=== PATIENT | male | born 1970 | race American Indian/Alaskan Native ===

== ENCOUNTER 2017-05-14 18:44 | Emergency (ER) | payer SELFPAY | END 2017-05-14 19:08 | disposition left against medical advice (07) | LOC: ED 18:44 | DX: R51 Headache (principal); Z53.21 Procedure and treatment not carried out due to patient leaving prior to being seen by health care provider ==

== ENCOUNTER 2019-12-22 21:00 | Emergency (ER) | payer OTHER ==
--- NOTE | 2019-12-22 21:21 | Consultation ---
History of Present Illness History of present illness: [facility] Date of Service: 12/22/2019 21:02:33 Impression: Rule Out Acute Ischemic Stroke Comments/Sign-Out: 49 YO M with h/o stroke on pradaxa, last dose this morning, presented with slurred speech. Recurrence of old stroke symptoms vs new stroke. Metrics: Last Known Well: 12/22/2019 18:00:00 [facility] Notification Time: 12/22/2019 21:02:22 Arrival Time: 12/22/2019 21:00:00 Stamp Time: 12/22/2019 21:02:33 Time First Login Attempt: 12/22/2019 21:07:07 Video Start Time: 12/22/2019 21:07:07 Symptoms: slurred speech NIHSS Start Assessment Time: 12/22/2019 21:11:00 Patient is not a candidate for tPA. Patient was not deemed candidate for tPA thrombolytics because of Use of NOAs within 48 hours. Video End Time: 12/22/2019 21:18:02 CT head showed no acute hemorrhage or acute core infarct. Clinical Presentation is not Suggestive of Large Vessel Occlusive Disease ED Physician notified of diagnostic impression and management plan on 12/22/2019 21:18:37 Our recommendations are outlined below. Recommendations: Activate Stroke Protocol Admission/Order Set Stroke/Telemetry Floor Neuro Checks Bedside Swallow Eval DVT Prophylaxis IV Fluids, Normal Saline Head of Bed 30 Degrees Euglycemia and Avoid Hyperthermia (PRN Acetaminophen) Infectious/metabolic workup. Routine Consultation with Inhouse Neurology for Follow up Care Sign Out: Discussed with Emergency Department Provider History of Present Illness: Patient is a 49 year old Male. Patient was brought by EMS for symptoms of slurred speech 49 YO M with h/o stroke on pradaxa, last dose this morning, presented with slurred speech. He states that he feels like his speech is normal but when he came home his told him that his speech is slurred. 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 Denies any focal weakness or numbness. Examination: 1A: Level of Consciousness - Alert; keenly responsive + 0 1B: Ask Month and Age - Both Questions Right + 0 1C: Blink Eyes & Squeeze Hands - Performs Both Tasks + 0 2: Test Horizontal Extraocular Movements - Normal + 0 3: Test Visual Briscoe - No Visual Loss + 0 4: Test Facial Palsy (Use Grimace if Obtunded) - Minor paralysis (flat nasolabial fold, smile asymmetry) + 1 5A: Test Left Arm Motor Drift - No Drift for 10 Seconds + 0 5B: Test Right Arm Motor Drift - No Drift for 10 Seconds + 0 6A: Test Left Leg Motor Drift - No Drift for 5 Seconds + 0 6B: Test Right Leg Motor Drift - No Drift for 5 Seconds + 0 7: Test Limb Ataxia (FNF/Heel-Batista) - No Ataxia + 0 8: Test Sensation - Normal; No sensory loss + 0 9: Test Language/Aphasia - Normal; No aphasia + 0 10: Test Dysarthria - Mild-Moderate Dysarthria: Slurring but can be understood + 1 11: Test Extinction/Inattention - No abnormality + 0 NIHSS Score: 2 Patient/Family was informed the Neurology Consult would happen via TeleHealth consult by way of interactive audio and video telecommunications and consented to receiving care in this manner. Due to the immediate potential for life-threatening deterioration due to underlying acute neurologic illness, I spent 35 minutes providing critical care. This time includes time for face to face visit via telemedicine, review of medical records, imaging studies and discussion of findings with providers, the patient and/or family. Dr Kerri Reyes [facility] Case [id number] Medications and Allergies Allergies Allergy/AdvReac Type Severity Reaction Status Date / Time No Known Allergies Allergy Verified 05/10/13 23:44 Home Medications Medication Instructions Recorded Confirmed Last Taken Type Acetaminophen/Codeine [Tylenol #3] 1 tab PO Q6H PRN #15 tab 05/11/13 Unknown Rx Naproxen Sodium (Nf) [Anaprox DS] 550 mg PO BID PRN #10 tablet 05/11/13 Unknown Rx methOCARBAMOL [Robaxin] 750 mg PO Q8H PRN #15 tablet 05/11/13 Unknown Rx Cyclobenzaprine [Flexeril 10mg] 10 mg PO Q8H PRN #21 tablet 03/04/[address] [Brionna Montgomery] 75 mg PO Q12H #30 tablet 03/04/14 Unknown Rx HYDROcodone/APAP 10-325 [[place] 1 each PO Q6HR PRN #25 tablet 03/04/14 Unknown Rx 10-325 mg TAB]
[2019-12-22 21:28] LABS: Basophils % (Auto) 0.4 % (0.0-1.8); Eosinophils # (Auto) 0.1 K/mm3 (0.0-0.4); Eosinophils % (Auto) 1.5 % (0.0-4.3); Hematocrit 34.4 % (35.5-45.6); Hemoglobin 11.2 gm/dl (11.8-15.2); Lymphocytes # (Auto) 2.4 K/mm3 (1.2-5.4); Lymphocytes % (Auto) 32.9 % (13.4-35.0); Mean Corpuscular HGB Conc 33 % (32-34); Monocytes # (Auto) 0.6 K/mm3 (0.0-0.8); Monocytes % (Auto) 7.7 % (0.0-7.3); Platelet Count 208 K/mm3 (140-440); Red Blood Count 5.25 M/mm3 (3.65-5.03); Red Cell Distribution Width 17.8 % (13.2-15.2)
--- NOTE | 2019-12-22 21:29 | Cat Scan Report ---
CT head without contrast INDICATION : Stroke symptoms. Code stroke TECHNIQUE: Axial imaging performed from the skull apex through the skull base without the use of con trast. All CT scans at this location are performed using CT dose reduction for ALARA by means of aut omated exposure control. COMPARISON: None FINDINGS: Parenchyma: No acute intracranial hemorrhage or parenchymal abnormality. Bilateral basal ganglia dave cifications are present. Ventricles: Ventricles are normal in size and appear symmetric. Soft tissues: Soft tissues including the orbits appear normal. Bones: No acute osseous abnormality. Sinuses: Sinuses and mastoid air cells are clear. IMPRESSION: No acute abnormality. CODE STROKE: Time of Communication (SIDE STITCHING MACHINE OPERATOR/CDT): 8:24 pm Licensed Practitioner Receiving Report: Dr. Albert Signer Name: Blayne Holcomb MD Signed: 12/22/2019 9:25 PM Workstation Name: [id number]
[2019-12-22 21:32] LABS: Mean Corpuscular Volume 66 fl (84-94)
[2019-12-22 21:50] LABS: INR 1.04 (0.87-1.13)
[2019-12-22 21:51] LABS: Thrombin Time 33.3 Sec. (15.1-19.6)
[2019-12-22 21:53] LABS: Creatine Kinase MB 8.5 ng/mL (0.0-4.0)
[2019-12-22 21:54] LABS: Alanine Aminotransferase 14 units/L (7-56); Albumin 3.6 g/dL (3.9-5); BUN/Creatinine Ratio 15; Blood Urea Nitrogen 12 mg/dL (9-20); Hemolysis Index 4
[2019-12-22 21:55] VITALS: BP 101/65
--- NOTE | 2019-12-22 22:07 | XRay Report ---
CHEST 1 VIEW INDICATION: weakness. COMPARISON: None FINDINGS: SUPPORT DEVICES: None. HEART: Normal heart size with sternotomy change and stent in the proximal descending thoracic aorta. LUNGS/PLEURA: No acute air space or interstitial disease. ADDITIONAL FINDINGS: None. IMPRESSION: 1. No acute findings. Signer Name: Blayne Holcomb MD Signed: 12/22/2019 10:03 PM Workstation Name: [id number]
--- NOTE | 2019-12-22 22:18 | Emergency Department Report ---
ED General Adult HPI - General Chief complaint: Neuro Symptoms/Deficit Stated complaint: STROKE Time Seen by Provider: 12/22/19 21:04 Source: patient, EMS Mode of arrival: Stretcher Limitations: No Limitations - History of Present Illness Initial comments: Patient presents to the emergency department via EMS and aphasia. The symptoms started an hour prior to the patient's arrival to the ED. Per EMS they state the patient's noticed that his left side became weak and he cannot speak. Per EMS arrival the patient was able to move his left side and was not able to communicate. By the time they arrived to the emergency department the patient is not able to move all 4 extremities but has slurred speech. Patient has a history of a CVA and aortic arch dissection. The patient is on Pradaxa. -: Sudden Severity scale (0 -10): 0 Consistency: now resolved Improves with: none Worsens with: none Associated Symptoms: denies other symptoms Treatments Prior to Arrival: none - Related Data Previous Rx's Medication Instructions Recorded Last Taken Type Acetaminophen/Codeine [Tylenol #3] 1 tab PO Q6H PRN #15 tab 05/11/13 Unknown Rx Naproxen Sodium (Nf) [Anaprox DS] 550 mg PO BID PRN #10 tablet 05/11/13 Unknown Rx methOCARBAMOL [Robaxin] 750 mg PO Q8H PRN #15 tablet 05/11/13 Unknown Rx Cyclobenzaprine [Flexeril 10mg] 10 mg PO Q8H PRN #21 tablet 03/04/[address] [Voltaren Dr] 75 mg PO Q12H #30 tablet 03/04/14 Unknown Rx HYDROcodone/APAP 10-325 [[place] 1 each PO Q6HR PRN #25 tablet 03/04/14 Unknown Rx 10-325 mg TAB] Allergies Allergy/AdvReac Type Severity Reaction Status Date / Time No Known Allergies Allergy Verified 05/10/13 23:44 ED Review of Systems ROS: Stated complaint: STROKE Other details as noted in HPI Comment: Unobtainable due to pts medical conditions ED Past Medical Hx - Past Medical History Previous Medical History?: Yes Hx CVA: Yes (Right-sided weakness after) Hx Deep Vein Thrombosis: Yes (Neck) Hx GERD: Yes Hx Kidney Stones: Yes - Surgical History Past Surgical History?: Yes Hx Open Heart Surgery: Yes (aortic tear) - Social History Smoking Status: Never Smoker Substance Use Type: Alcohol - Medications Home Medications: Home Medications Medication Instructions Recorded Confirmed Last Taken Type Acetaminophen/Codeine [Tylenol #3] 1 tab PO Q6H PRN #15 tab 05/11/13 Unknown Rx Naproxen Sodium (Nf) [Anaprox DS] 550 mg PO BID PRN #10 tablet 05/11/13 Unknown Rx methOCARBAMOL [Robaxin] 750 mg PO Q8H PRN #15 tablet 05/11/13 Unknown Rx Cyclobenzaprine [Flexeril 10mg] 10 mg PO Q8H PRN #21 tablet 03/04/[address] [Voltaren Dr] 75 mg PO Q12H #30 tablet 03/04/14 Unknown Rx HYDROcodone/APAP 10-325 [[place] 1 each PO Q6HR PRN #25 tablet 03/04/14 Unknown Rx 10-325 mg TAB] ED Physical Exam - General Limitations: No Limitations General appearance: alert, in no apparent distress - Head Head exam: Present: atraumatic, normocephalic - Eye Eye exam: Present: normal appearance - ENT ENT exam: Present: mucous membranes moist - Neck Neck exam: Present: normal inspection - Respiratory Respiratory exam: Present: normal lung sounds bilaterally. Absent: respiratory distress - Cardiovascular Cardiovascular Exam: Present: regular rate, normal rhythm. Absent: systolic murmur, diastolic murmur, rubs, gallop - GI/Abdominal GI/Abdominal exam: Present: soft, normal bowel sounds. Absent: distended, tenderness - Rectal Rectal exam: Present: deferred - Extremities Exam Extremities exam: Present: normal inspection - Back Exam Back exam: Present: normal inspection - Neurological Exam Neurological exam: Present: alert, oriented X3, CN II-XII intact, other (Right- sided facial droop; slurred speech). Absent: motor sensory deficit - Psychiatric Psychiatric exam: Present: normal affect, normal mood - Skin Skin exam: Present: warm, dry, intact, normal color. Absent: rash ED Course Vital Signs 12/22/19 12/22/19 12/22/19 21:24 21:25 21:30 Temperature 98.6 F Pulse Rate 71 71 Respiratory 16 19 Rate Blood Pressure 101/65 Blood Pressure 99/67 [Left] O2 Sat by Pulse 97 96 97 Oximetry ED Medical Decision Making - Lab Data Result diagrams: 12/22/19 21:22 12/22/19 21:22 Lab Results 12/22/19 12/22/19 12/22/19 Range/Units 21:22 21:22 21:22 WBC 7.2 (4.5-11.0) K/mm3 RBC 5.25 H (3.65-5.03) M/mm3 Hgb 11.2 L (11.8-15.2) gm/dl Hct 34.4 L (35.5-45.6) % MCV 66 L (84-94) fl MCH 21 L (28-32) pg MCHC 33 (32-34) % RDW 17.8 H (13.2-15.2) % Plt Count 208 (140-440) K/mm3 Lymph % (Auto) 32.9 (13.4-35.0) % [place]yer % (Auto) 7.7 H (0.0-7.3) % Eos % (Auto) 1.5 (0.0-4.3) % Baso % (Auto) 0.4 (0.0-1.8) % Lymph # 2.4 (1.2-5.4) K/mm3 Dyer # 0.6 (0.0-0.8) K/mm3 Eos # 0.1 (0.0-0.4) K/mm3 Baso # 0.0 (0.0-0.1) K/mm3 Seg Neutrophils % 57.5 (40.0-70.0) % Seg Neutrophils # 4.2 (1.8-7.7) K/mm3 PT 13.8 (12.2-14.9) Sec. INR 1.04 (0.87-1.13) APTT 34.0 (24.2-36.6) Sec. Thrombin Time 33.3 H (15.1-19.6) Sec. Sodium 139 (137-145) mmol/L Potassium 3.7 (3.6-5.0) mmol/L Chloride 103.1 (98-107) mmol/L Carbon Dioxide 25 (22-30) mmol/L Anion Gap 15 mmol/L BUN 12 (9-20) mg/dL Creatinine 0.8 (0.8-1.3) mg/dL Estimated GFR > 60 ml/min BUN/Creatinine Ratio 15 % Glucose 157 H (75-100) mg/dL POC Glucose (70-105) Calcium 9.0 (8.4-10.2) mg/dL Total Bilirubin 0.40 (0.1-1.2) mg/dL AST 22 (5-40) units/L ALT 14 (7-56) units/L Alkaline Phosphatase 62 (35-129) units/L Total Creatine Kinase 322 H (55-170) units/L CK-MB (CK-2) 8.5 H (0.0-4.0) ng/mL CK-MB (CK-2) Rel Index 2.6 (0-4) Troponin T < 0.010 (0.00-0.029) ng/mL Total Protein 7.6 (6.3-8.2) g/dL Albumin 3.6 L (3.9-5) g/dL Albumin/Globulin Ratio 0.9 % 12/22/19 Range/Units 21:37 WBC (4.5-11.0) K/mm3 RBC (3.65-5.03) M/mm3 Hgb (11.8-15.2) gm/dl Hct (35.5-45.6) % MCV (84-94) fl MCH (28-32) pg MCHC (32-34) % RDW (13.2-15.2) % Plt Count (140-440) K/mm3 Lymph % (Auto) (13.4-35.0) % [place]yer % (Auto) (0.0-7.3) % Eos % (Auto) (0.0-4.3) % Baso % (Auto) (0.0-1.8) % Lymph # (1.2-5.4) K/mm3 Dyer # (0.0-0.8) K/mm3 Eos # (0.0-0.4) K/mm3 Baso # (0.0-0.1) K/mm3 Seg Neutrophils % (40.0-70.0) % Seg Neutrophils # (1.8-7.7) K/mm3 PT (12.2-14.9) Sec. INR (0.87-1.13) APTT (24.2-36.6) Sec. Thrombin Time (15.1-19.6) Sec. Sodium (137-145) mmol/L Potassium (3.6-5.0) mmol/L Chloride (98-107) mmol/L Carbon Dioxide (22-30) mmol/L Anion Gap mmol/L BUN (9-20) mg/dL Creatinine (0.8-1.3) mg/dL Estimated GFR ml/min BUN/Creatinine Ratio % Glucose (75-100) mg/dL POC Glucose 142 H (70-105) Calcium (8.4-10.2) mg/dL Total Bilirubin (0.1-1.2) mg/dL AST (5-40) units/L ALT (7-56) units/L Alkaline Phosphatase (35-129) units/L Total Creatine Kinase (55-170) units/L CK-MB (CK-2) (0.0-4.0) ng/mL CK-MB (CK-2) Rel Index (0-4) Troponin T (0.00-0.029) ng/mL Total Protein (6.3-8.2) g/dL Albumin (3.9-5) g/dL Albumin/Globulin Ratio % - EKG Data -: EKG Interpreted by Me EKG shows normal: sinus rhythm Rate: normal - Radiology Data Radiology results: report reviewed - Medical Decision Making Code stroke was called Patient symptoms have improved since the initial presentation upon EMS arrival Patient was seen by tele-neurology and was felt that the patient should be admitted to the hospital for a complete stroke work-up At 9 PM on reexamination of the patient his slurred speech is complete resolved and he is able to move all 4 extremities without issue and his sensation and mo tor skills are all intact Patient states he wants to leave AMA I discussed with the patient my concern about this specially since he has a history of CVA and a history of aortic arch dissection. Patient states he also has to have his descending aorta repaired as well. Explained to the patient that even though he findings have resolved of his symptoms there is a high risk of a stroke within the next 30 days due to the TIA. Told the patient this could lead to paralysis, , permanent disabil ity such as not able to carry a self living in a care home. Patient states he understands this and wants to go home. Critical care attestation.: If time is entered above; I have spent that time in minutes in the direct care of this critically ill patient, excluding procedure time. ED Disposition Clinical Impression: TIA (transient ischemic attack) Disposition: [id number]-07 LEFT AGAINST MED ADVICE Is pt being admited?: No Does the pt Need Aspirin: No Condition: Stable Instructions: Transient Ischemic Attack (ED) Additional Instructions: return if worse As discussed I feel that you should be admitted to the hospital for stroke work- up. You expressed that she understood that having a mini stroke does increase her risk of a stroke over the next 30 days. Stroke can lead in , permanent paralysis, and inability to care for oneself and had to live in a long-term care facility. You state that you understand all of these risk factors Referrals: PRIMARY CAREMD [Primary Care Provider] - 3-5 Days ARIEL LOJA MD [Staff Physician] - 3-5 Days Time of Disposition: 22:21
--- NOTE | 2019-12-22 22:25 | Emergency Department Report ---
- Assessment Assessment Interval: Baseline - Level of Consciousness 1a. Level of Consciousness: alert/keenly responsive - LOC Questions 1b. LOC Questions: answers both correctly - LOC Command 1c. LOC Commands: performs tasks correctly - Best Gaze 2. Best Gaze: normal - Visual 3. Visual: no visual loss - Facial Palsy 4. Facial Palsy: minor paralysis - Motor Arm 5a. Motor Arm Left: no drift 5b. Motor Arm Right: no drift - Motor Leg 6a. Motor Leg Left: no drift 6b. Motor Leg Right: no drift - Limb Ataxia 7. Limb Ataxia: absent - Sensory 8. Sensory: normal - Best Language 9. Best Language: no aphasia - Dysarthria 10. Dysarthria: mild/moderate dysarthria - Extinction and Inattention 11. Extinction/Inattention: no abnormality - Scoring Total Score: 2 Stroke Severity: Minor Stroke
[2019-12-22 22:44] LABS: Bilirubin,Urine NEG (Negative); Blood,Urine NEG (Negative); Color,Urine Yellow (Yellow); Protein,Urine <15 mg/dL mg/dL (Negative); Urobilinogen,Urine < 2.0 mg/dL (<2.0); WBC,Urine < 1.0 /HPF (0.0-6.0)
== END 2019-12-22 22:54 | disposition left against medical advice (07) ==
LOC: ED 21:00
DX: G45.9 Transient cerebral ischemic attack, unspecified (principal); I82.409 Acute embolism and thrombosis of unspecified deep veins of unspecified lower extremity; K21.9 Gastro-esophageal reflux disease without esophagitis; Z79.899 Other long term (current) drug therapy
CPT/HCPCS: 36415; 70450; 71045; 80053; 81001; 82550; 82553; 82962; 84484; 85025; 85610; 85670; 85730; 93005